=== PATIENT | female | born 1980 | race Caucasian/White ===

== ENCOUNTER 2020-01-01 16:18 | Outpatient (CLI) | payer OTHER, SELFPAY ==
--- NOTE | ~2020-01-01 | XR_ITS ---
XR foot LT min 3V DATE: 01/01/2020 16:43 INDICATION: Left foot dorsal and lateral injury, pain, swelling after a fall down stairs. TECHNIQUE: 4 views COMPARISON: None FINDINGS: No fracture or dislocation, periosteal reaction or bone destruction. Joint spaces are prese rved. IMPRESSION: Negative Reviewed, dictated and finalized at location A. IMPRESSION: Negative
== END 2020-01-01 16:19 | disposition home or self-care (01) ==
PROVIDERS: PCP Physician Assistant; Visit Provider Physician Assistant
DX: S99.922A Unspecified injury of left foot, initial encounter (principal); X58.XXXA Exposure to other specified factors, initial encounter
CPT/HCPCS: 73630

== ENCOUNTER 2020-06-21 16:44 | Outpatient (CLI) | payer OTHER, SELFPAY ==
--- NOTE | ~2020-06-21 | MM_ITS ---
EXAMINATION: MM screening [facility]chis BI w tequila HISTORY: Screening mammogram TECHNIQUE: Craniocaudal and mediolateral oblique 3-D tomosynthesis images were obtained and synthetic 2-D images were generated. CAD analysis was submitted and interpreted. COMPARISON: None, baseline BREAST PARENCHYMAL COMPOSITION: The breasts are heterogeneously dense, which may obscure small masses . FINDINGS: RIGHT BREAST: There appear to be low-density obscured masses in the upper outer quadrant of the breas t. No suspicious calcification or architectural distortion are identified. LEFT BREAST: An asymmetry is present in the middle third of the breast 4 cm from the nipple on the me diolateral oblique view. There is no suspicious calcification or architectural distortion. IMPRESSION: 1. Bilateral breast findings as described above. 2. Additional mammographic views and possible breast ultrasound are recommended to evaluate for malig nelly and establish a baseline given that this is the first mammographic examination. BI-RADS Category 0: Incomplete: Needs additional imaging evaluation. Reviewed, dictated and finalized at location A. SEOLOGIST IMPRESSION: 1. Bilateral breast findings as described above. 2. Additional mammographic views and possible breast ultrasound are recommended to evaluate for malignancy and establish a baseline given that this is the fir st mammographic examination. BI-RADS Category 0: Incomplete: Needs additional imaging evaluation.
== END 2020-06-21 16:45 | disposition home or self-care (01) ==
PROVIDERS: PCP Physician Assistant; Visit Provider Obstetrics & Gynecology
DX: Z12.31 Encounter for screening mammogram for malignant neoplasm of breast (principal); R92.8 Other abnormal and inconclusive findings on diagnostic imaging of breast
CPT/HCPCS: 77063; 77067

== ENCOUNTER 2020-07-28 13:06 | Outpatient (CLI) | payer OTHER, SELFPAY ==
--- NOTE | ~2020-07-28 | MMUS_ITS ---
EXAMINATION: MM diagnostic mammo BI, US breast BI complete HISTORY: Low-density circumscribed masses in upper outer quadrant of right breast and asymmetry in th e middle third of the left breast 4 cm from the nipple on MLO view of 06/21/2020 bilateral digital sc reening mammogram examination TECHNIQUE: Additional 3-D tomosynthesis images of both breasts were performed and synthetic 2-D image s were generated. CAD analysis was submitted and interpreted. High resolution bilateral complete jakob st ultrasound was performed. COMPARISON: 06/21/2020 bilateral digital screening mammogram FINDINGS: MAMMOGRAPHIC FINDINGS: No suspicious reproducible mass or any architectural distortion is evident. There is minimal benign c alcification. ULTRASOUND: Right breast: 8:00: 12 x 9.3 x 9.9 mm simple cyst with through transmission and posterior enhancement Adjacent clustered cysts are noted at 8:00 6 cm from the nipple. Another cluster of small cysts is noted at 8:00 3 cm from the nipple, measuring approximately 6.2 x 9 .8 mm overall maximal dimension. There is a 2.9 x 1.3 x 2.5 cm simple cyst in the subareolar area of the right breast. No right or left breast suspicious mass or suspicious shadowing is identified. IMPRESSION: 1. Benign right breast cysts 2. Routine annual mammographic screening is recommended. BI-RADS Category 2: Benign finding(s). Reviewed, dictated and finalized at location A. 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 Benign right breast cysts 2. Routine annual mammographic screening is recommended. BI-RADS Category 2: Benign finding(s).
--- NOTE | ~2020-07-28 | US_ITS ---
EXAMINATION: US pelvic complete w TV EXAM DATE: 07/28/2020 11:08 INDICATION: R10.2 - Pelvic and perineal pain. TECHNIQUE: Pelvic transabdominal and transvaginal sonogram was performed. There are multiple graysca le and Doppler images available for interpretation. Comparison is made to prior examination from 06/07. FINDINGS: Uterus measures 10.7 x 5.8 x 6.7 cm, and is morphologically normal. Endometrial stripe me asures 23 mm, thickened with homogeneous echogenic. There is small free pelvic fluid. Right adnexa: The ovary measures 2.3 x 4.2 x 2.3 cm and is morphologically normal. Ovarian vascular f low confirmed. Left adnexa: The ovary measures 2.8 x 1.5 x 1.9 cm and has dominant follicles. Ovarian vascular flow confirmed. There are large left adnexal veins, possible pelvic congestion syndrome. IMPRESSION: 1. Thickened endometrium at 2.3 cm could be phasic; consider 6 week follow-up pelvic sonogram. 2. Dilated left adnexal veins, possible pelvic congestion syndrome. Reviewed, dictated and finalized at location A. 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
== END 2020-07-28 13:07 | disposition home or self-care (01) ==
PROVIDERS: PCP Physician Assistant; Visit Provider Obstetrics & Gynecology
DX: R92.8 Other abnormal and inconclusive findings on diagnostic imaging of breast (principal); R10.2 Pelvic and perineal pain
CPT/HCPCS: 76641; 76830; 76856; 77066

== ENCOUNTER → 2020-08-16 03:48 | Outpatient (CLI) | payer OTHER, SELFPAY ==
[2020-08-17 18:18] LABS: SARS-CoV-2 RNA PCR Negative
== END ==
PROVIDERS: PCP Physician Assistant; Visit Provider Internal Medicine Gastroenterology
DX: Z01.812 Encounter for preprocedural laboratory examination (principal); Z20.822 Contact with and (suspected) exposure to COVID-19
CPT/HCPCS: C9803; U0003; U0005

== ENCOUNTER 2020-08-19 01:02 | Day surgery (SDC) | payer OTHER, SELFPAY ==
[2020-08-08 10:41] VITALS: BMI 21.2
[2020-08-19 06:25] VITALS: BP 119/84; PULSE 119; RESP 17; TEMP 36.4; O2SAT 100; BMI 20.1
[2020-08-19] MEDS: LACTATED RINGERS 1,000 ML 150 ML IV CONT (06:38)
--- NOTE | 2020-08-19 07:23 | WPDANESEPPF ---
Anes - Initial Pre Proc Eval Procedure: Operation Date: 08/19/20 07:30 Proposed Procedures p Screening Colonoscopy - Jamie Brothers MD Date/Time: 08/19/20 07:23 Surgeon: Jamie Brothers MD Pre Op Diagnosis: Neoplasm Screening Patient Data Age: 40 Gender: F Height: 5 ft 5 in Weight: 54.9 kg Last Vital Signs Temp 97.6 F 08/19/20 06:25 Pulse 119 H 08/19/20 06:25 Resp 17 08/19/20 06:25 BP 119/84 08/19/20 06:25 Pulse Ox 100 08/19/20 06:25 Allergies Allergy/AdvReac Type Severity Reaction Status Date / Time No Known Allergies Allergy Verified 08/19/20 06:24 Home Medications Medication Instructions Recorded Confirmed Type spironolactone 50 mg tablet 50 mg PO DAILY 07/21/20 08/19/20 History Patient hx anesthesia problems: none Family hx anesthesia problems: none PMFSH Past Medical History Medical History (Updated 08/19/20 @ 07:23 by Pedro Cote MD) Healthy adult x4 Family History Family History Mother Endometrial ca Social History Social History Smoking status: Never smoker Second hand tobacco smoke exposure: No Alcohol intake: current Drinks per week: 3 Living arrangements: with family Spiritual care concerns: No Anes - Eval Final PreProcedure Day of Procedure 08/19/20 07:23 Patient weight: normal Heart: regular rate and rhythm Lungs: clear to auscultation Airway: Mallampati scale class 1 Neurological: alert and oriented Last oral intake: >/= 8 hours ASA classification: I Emergent: no Anesthetic plan: proceed Anesthesia type and monitoring: general GIVS and standard monitoring Informed Consent: The patient's anesthetic plan and its attendant risks and benefits were discussed with the patient/family/POA. Questions were solicited and answers provided to the satisfaction of the patient/family/POA.
--- NOTE | 2020-08-19 07:38 | PM.HPGS ---
History of Present Illness History of Present Illness Consent: Risks, benefits, and alternatives have been discussed and questions answered. Patient agrees to proceed with procedure. Chief complaint: Neoplasm Screening Narrative: Talita Johns is a 40 year old female here for first screening colonoscopy, mother just diagnosed with Davis syndrome after had uterine cancer. Patient is asymptomatic Review of Systems Constitutional: Constitutional: Denies headache(s) and Denies weakness Eyes: Eyes: Denies blurry vision ENT: Reports Normal hearing present, Denies headache(s) and Denies neck pain Cardiovascular: Cardiovascular: Denies chest pain and Denies dyspnea Respiratory: Respiratory: Denies dyspnea Gastrointestinal: Gastrointestinal: Reports no additional gastrointestinal complaints Genitourinary: Genitourinary: Denies dysuria Musculoskeletal: Musculoskeletal: Denies neck pain Integumentary/Breasts: Skin/Breast: Denies dry skin Neurologic: Reports Normal hearing present, Denies headache(s) and Denies weakness Psychiatric: Psychiatric: Denies anxiety Endocrine: Endocrine: Denies change in body appearance Hematologic/Lymphatic: Hematologic/Lymphatic: Denies easy bleeding Allergic/Immunologic: Allergic/Immunologic: Denies urticaria PMFSH Past Medical History Medical History (Updated 08/19/20 @ 07:39 by Jamie Brothers MD) Colon cancer screening Family history of Davis syndrome Healthy adult x4 Family History Family History Mother Endometrial ca Social History Social History Smoking status: Never smoker Second hand tobacco smoke exposure: No Alcohol intake: current Drinks per week: 3 Living arrangements: with family Spiritual care concerns: No Meds Home Medications and Allergies Home Medications Medication Instructions Recorded Confirmed Type spironolactone 50 mg tablet 50 mg PO DAILY 07/21/20 08/19/20 History Allergies Allergy/AdvReac Type Severity Reaction Status Date / Time No Known Allergies Allergy Verified 08/19/20 06:24 Vital Signs Vital Signs - 24 hr 08/19/20 06:25 Temperature 97.6 F Pulse Rate 119 H Respiratory Rate 17 Blood Pressure 119/84 Pulse Oximetry 100 Exam Const: General: comfortable and no acute distress HENMT: General nose exam: Normal nares present Eyes: General: appearance normal, both eyes and all related structures Neck: Neck: no JVD Resp: Auscultation: clear to auscultation bilaterally Cardio: Rate: regular rate Rhythm: regular rhythm GI: Inspection: non-distended GI Palp: Yes Soft to palpation Skin: General skin exam: normal color Neuro: General: gait normal Speech: normal speech Extrem: General: normal to inspection Psych: Mental Status: mental status grossly normal Assessment and Plan Assessment and plan (1) Colon cancer screening: Code(s): Z12.11 - Encounter for screening for malignant neoplasm of colon Status: Acute Assessment and Plan: proceed with colonoscopy (2) Family history of Davis syndrome: Code(s): Z80.0 - Family history of malignant neoplasm of digestive organs Status: Acute
[2020-08-19 08:03] VITALS: BP 92/62; PULSE 82; RESP 21; O2SAT 100
[2020-08-19 08:13] VITALS: BP 101/70; PULSE 75; RESP 18; O2SAT 100
[2020-08-19 08:23] VITALS: BP 108/68; PULSE 74; RESP 20; O2SAT 99
== END 2020-08-19 08:54 | disposition home or self-care (01) ==
PROVIDERS: PCP Physician Assistant; Referring Provider Obstetrics & Gynecology; Visit Provider Internal Medicine Gastroenterology
PROC: 0DJD8ZZ Inspection of Lower Intestinal Tract, Via Natural or Artificial Opening Endoscopic (ICD-10-PCS; CPT 45378; principal; 2020-08-19 07:30)
DX: Z12.11 Encounter for screening for malignant neoplasm of colon (principal); D12.4 Benign neoplasm of descending colon; D12.5 Benign neoplasm of sigmoid colon; Z80.0 Family history of malignant neoplasm of digestive organs; K63.5 Polyp of colon; K64.8 Other hemorrhoids
CPT/HCPCS: 45385; 88305; C9803; J2001; J2704; J7120; U0003; U0005

== ENCOUNTER → 2020-12-10 00:49 | Outpatient (CLI) | payer OTHER, SELFPAY ==
[2020-12-10 19:37] LABS: SARS-CoV-2 RNA PCR Negative
== END ==
PROVIDERS: PCP Physician Assistant; Visit Provider Obstetrics & Gynecology
DX: Z01.812 Encounter for preprocedural laboratory examination (principal); Z20.822 Contact with and (suspected) exposure to COVID-19
CPT/HCPCS: C9803; U0003; U0005

== ENCOUNTER 2020-12-14 00:51 | Day surgery (SDC) | payer OTHER, SELFPAY ==
[2020-12-06 13:34] VITALS: BMI 21.1
--- NOTE | 2020-12-13 22:32 | PM.IMHP ---
H&P: HPI History of Present Illness Date/Time: 12/13/20 22:32 She has a history of prolonged periods for close to a year. She has periods that can last up to ten days. Has intermittent months where she has spotting mid cycle. Pelvic ultrasound in July showed thickened endometrial stripe which can be normal is a person her age but due to her mother having a history of uterine cancer and due to her symptoms, an endometrial biopsy was recommended. She was informed that the endometrial biopsy did show a polyp. She was informed that the polyp is benign. Discussed the procedure that is recommended to remove the polyp which is a dilation and curettage and hysteroscopy. Discussed with her that endometrial polyps can reoccur. She does have a strong family history of uterine cancer. And has some family history that may be consistent with Davis syndrome which she has been offered the test to check for Davis syndrome. Discussed with her that intrauterine device with progesterone may be protective on the uterus as for his risk of endometrial cancer abnormal endometrial cells. Discussed the risks benefits of Mirena IUD. She does not desire any future . She was informed that the IUD can be put in at the same time as the D and C hysteroscopy if she desires this. Her questions were answered. Chief Complaint: Abnormal bleeding and endometrial polyp. Review of Systems Review of Systems: All systems reviewed & are unremarkable except as noted in HPI and below Cardiovascular: Cardiovascular: Reports no additional cardiovascular complaints, Denies chest pain and Denies dyspnea Respiratory: Respiratory: Reports no additional respiratory complaints and Denies dyspnea Gastrointestinal: Gastrointestinal: Reports abdominal pain, Denies change in bowel habits, Denies diarrhea, Denies nausea and Denies vomiting Genitourinary: Genitourinary: Reports pelvic pain Musculoskeletal: Musculoskeletal: Reports back pain Integumentary/Breasts: Skin/Breast: Reports system reviewed and no additional complaints, except as docu Neurologic: Reports system reviewed and no additional complaints, except as documented PMFSH Past Medical History Medical History Colon cancer screening Family history of Davis syndrome Healthy adult x4 Surgical History Surgical History H/O ovarian cystectomy [place] teeth removed Family History Family History Mother Endometrial ca Social History Social History Smoking status: Never smoker Second hand tobacco smoke exposure: No Alcohol intake: current Drinks per week: 3 Substance use: never Substance use type: does not use Living arrangements: with family Spiritual care concerns: No Meds Home Medications and Allergies Home Medications Medication Instructions Recorded Confirmed Type spironolactone 50 mg tablet 50 mg PO DAILY 07/21/20 12/14/20 History Allergies Allergy/AdvReac Type Severity Reaction Status Date / Time No Known Allergies Allergy Verified 12/14/20 06:26 Exam Const: Orientation/consciousness: oriented to person and oriented to place HENMT: Head: normal to inspection Eyes: General: appearance normal, both eyes and all related structures Resp: Effort & Inspection: normal respiratory effort Auscultation: clear to auscultation bilaterally Cardio: Rate: regular rate Rhythm: regular rhythm GI: Inspection: normal to inspection GI Palp: No Rebound tenderness present : External Female Exam: normal external appearance Speculum Exam - Vagina: normal appearance of the vagina Speculum Exam - Cervix: normal appearance of the cervix Bimanual exam- vagina & uterus: normal bimanual exam Bimanual Exam- Adnexa, other: normal adnexae Neuro:
[2020-12-14 06:21] VITALS: BP 128/61; PULSE 93; RESP 16; TEMP 36.3; O2SAT 100
[2020-12-14] MEDS: ACETAMINOPHEN 500 MG TABLET 1000 MG PO (06:35)
[2020-12-14] MEDS: LACTATED RINGERS 1,000 ML 30 ML IV CONT ×2 (06:40→07:57)
--- NOTE | 2020-12-14 06:57 | WPDHPUPDATE1 ---
History and Physical Update Update Date/Time: 12/14/20 06:57 History and Physical has been reviewed, including an updated exam of the patient. There are NO changes in the patient's condition. Risks, benefits, and alternatives have been discussed and questions answered. Patient agrees to proceed with procedure.
--- NOTE | 2020-12-14 07:01 | P.PNAN_ITS ---
Anes - Initial Pre Proc Eval Procedure: Operation Date: 12/14/20 07:30 Proposed Procedures p Hysteroscopy, Dilation and Curettage With Myosure, Mirena Insertion - Mario Jim MD Date/Time: 12/14/20 07:01 Surgeon: Mario Jim MD Pre Op Diagnosis: Abnormal Bleeding, Endometrial Polyp Patient Data Age: 40 Gender: F Height: 5 ft 4.5 in Weight: 58.4 kg Last Vital Signs Temp 36.3 C L 12/14/20 06:21 Pulse 93 12/14/20 06:21 Resp 16 12/14/20 06:21 BP 128/61 12/14/20 06:21 Pulse Ox 100 12/14/20 06:21 Allergies Allergy/AdvReac Type Severity Reaction Status Date / Time No Known Allergies Allergy Verified 12/14/20 06:26 Home Medications Medication Instructions Recorded Confirmed Type spironolactone 50 mg tablet 50 mg PO DAILY 07/21/20 12/14/20 History Patient hx anesthesia problems: none and other (motion sickness) Family hx anesthesia problems: none PMFSH Past Medical History Medical History Colon cancer screening Family history of Davis syndrome Healthy adult x4 Surgical History Surgical History H/O ovarian cystectomy [place] teeth removed Family History Family History Mother Endometrial ca Social History Social History Smoking status: Never smoker Second hand tobacco smoke exposure: No Alcohol intake: current Drinks per week: 3 Substance use: never Substance use type: does not use Living arrangements: with family Spiritual care concerns: No Anes - Eval Final PreProcedure Day of Procedure 12/14/20 07:01 Patient weight: normal Heart: regular rate and rhythm Lungs: clear to auscultation Airway: Mallampati scale class II Neurological: alert and oriented Last oral intake: >/= 8 hours ASA classification: I Emergent: no Anesthetic plan: proceed Anesthesia type and monitoring: general GIVS and standard monitoring Informed Consent: The patient's anesthetic plan and its attendant risks and benefits were discussed with the patient/family/POA. Questions were solicited and answers provided to the satisfaction of the patient/family/POA.
[2020-12-14] MEDS: SCOPOLAMINE 1.5 MG PATCH TRANSDERM (07:07)
[2020-12-14] MEDS: ceFAZolin 2 GM/D5W 50 ML 2 GM/50 ML BAG IVPB (07:24)
[2020-12-14] MEDS: KETOROLAC 30 MG/ML VIAL (*BKC) IV PUSH (07:50)
--- NOTE | 2020-12-14 07:53 | W.PM.PROC2 ---
Procedure Note - Detailed Date of Procedure 12/26/20 Pre-op Diagnosis Abnormal Bleeding, Endometrial Polyp Post-op Diagnosis same Procedure Performed 1. Diagnostic hysteroscopy and dilation and currettage. 2. Mirena insertion Surgeon Mario Jim MD Anesthesia MAC and local Indications 1. Abnormal uterine bleeding and endometrial polyp on office endometrial biopsy. Findings Uterus sound to 9cm, cavity normal appearing with mildly proliferative tissue, no polyp visualized. Normal saline distending media 300ccI/260cc out. Description of Procedure After informed consent was obtained patient was taken to operating room in stable condition. After IV anesthesia she was placed low lithotomy position and prepped and draped in sterile fashion. Attention was turned to vagina. Speculum inserted. Single tooth tenaculum placed on cervix. 10cc of 1% lidocaine was injected at cervicovaginal interface at 2,5,8,10 o clock. Uterus was sound to 9cm. Cervix dilated to 8 mcclendon dilator. The hysteroscope was inserted. Cavity appeared normal with mild proliferative tissue. A currettage was performed. The Mirena device was inserted in normal fashion. String trimmed to 3 cm. Tenaculum removed. Hemostasis noted at tenaculum site. Patient tolerated procedure well. Implants Mirena device Lot [id number] EXp Dec 2022. Estimated Blood Loss 5 Drains No Packing No Pathology yes (1. Endometrial currettings) Complications No immediate complications Condition stable Disposition same day
[2020-12-14 07:57] VITALS: BP 119/65; PULSE 75; RESP 12; O2SAT 100
[2020-12-14 08:15] VITALS: BP 114/86; PULSE 64; RESP 20
[2020-12-14 08:45] VITALS: BP 103/69; PULSE 58; RESP 20
[2020-12-14 09:10] VITALS: BP 100/68; PULSE 60; RESP 20
== END 2020-12-14 09:15 | disposition home or self-care (01) ==
PROVIDERS: PCP Physician Assistant; Visit Provider Obstetrics & Gynecology
PROC: 0U5B8ZZ Destruction of Endometrium, Via Natural or Artificial Opening Endoscopic (ICD-10-PCS; CPT 58563; principal; 2020-12-14 07:30)
DX: N93.9 Abnormal uterine and vaginal bleeding, unspecified (principal); N84.0 Polyp of corpus uteri; Z30.430 Encounter for insertion of intrauterine contraceptive device; Z15.09 Genetic susceptibility to other malignant neoplasm
CPT/HCPCS: 58558; 58300; 88305; A9270; C9803; J0690; J1885; J2250; J2704; J3010; J7030; J7120; U0003; U0005

== ENCOUNTER 2021-07-06 12:13 | Outpatient (CLI) | payer OTHER, SELFPAY ==
--- NOTE | ~2021-07-06 | MMUS_ITS ---
EXAMINATION: MM diagnostic conchis BI w tequila, US breast RT limited HISTORY: Palpable right breast abnormality TECHNIQUE: Additional 3-D tomosynthesis images of the breasts were performed and synthetic 2-D images were generated. CAD analysis was submitted and interpreted. High resolution Limited right breast ult rasound was performed. COMPARISON: Comparison to multiple prior studies sequentially, with oldest reviewed study dated 06/07. BREAST PARENCHYMAL COMPOSITION: The breasts are heterogenously dense, which may obscure small masses. FINDINGS: MAMMOGRAPHIC FINDINGS: There is a mass in the subareolar location of the right breast which appears slightly larger than on prior examination. The left breast is stable without evidence for malignancy. ULTRASOUND: Limited right breast ultrasound: At 8:00, 3 cm from the nipple, there is a 3 cm cyst corresponding to the palpable abnormality. No lyn picious masses to suggest malignancy. IMPRESSION: 1. No significant change to benign 3 cm right breast cyst at 8:00, 3 cm from the nipple, correspondin g to the palpable abnormality. No evidence for malignancy in either breast. 2. Routine yearly screening mammogram and regular clinical breast examination are recommended. BI-RADS Category 2: Benign finding(s). Reviewed, dictated and finalized at location A. 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 No significant change to benign 3 cm right breast cyst at 8:00, 3 cm from th e nipple, corresponding to the palpable abnormality. No evidence for malignancy in either breast. 2. Routine yearly screening mammogram and regular clinical breast examination a re recommended. BI-RADS Category 2: Benign finding(s).
== END 2021-07-06 12:14 | disposition home or self-care (01) ==
LOC: ANHIMG 12:15
PROVIDERS: PCP Physician Assistant; Visit Provider Obstetrics & Gynecology
DX: N63.0 Unspecified lump in unspecified breast (principal); N60.01 Solitary cyst of right breast
CPT/HCPCS: 76642; 77062; 77066; G0279

== ENCOUNTER 2022-10-16 09:08 | Outpatient (CLI) | payer OTHER, SELFPAY ==
--- NOTE | ~2022-10-16 | MM_ITS ---
EXAMINATION: MM screening [facility] BI w tequila HISTORY: Screening mammogram TECHNIQUE: Craniocaudal and mediolateral oblique 3-D tomosynthesis images were obtained and synthetic 2-D images were generated. CAD analysis was submitted and interpreted. COMPARISON: 07/06/2021, 07/28/2020, 06/21/2020 BREAST PARENCHYMAL COMPOSITION:The breasts are extremely dense, which lowers the sensitivity of mammo graphy. FINDINGS: No suspicious mass, calcification, or architectural distortion are identified in either jackie ast to suggest malignancy. There has been no suspicious interval change. IMPRESSION: No mammographic evidence of malignancy. Recommend routine screening mammography in one year. BI-RADS Category 1: Negative Reviewed, dictated and finalized at location .
== END 2022-10-16 09:09 | disposition home or self-care (01) ==
PROVIDERS: PCP Physician Assistant; Visit Provider Obstetrics & Gynecology
DX: Z12.31 Encounter for screening mammogram for malignant neoplasm of breast (principal)
CPT/HCPCS: 77063; 77067

== ENCOUNTER 2022-11-02 01:36 | Day surgery (SDC) | payer OTHER, SELFPAY ==
[2022-10-25 08:37] VITALS: BMI 21.1
--- NOTE | 2022-11-01 12:41 | WPDANESEPPF ---
Anes - Initial Pre Proc Eval Procedure: Operation Date: 11/02/22 11:30 Proposed Procedures p Colonoscopy - Jamie Brothers MD Date/Time: 11/01/22 12:41 Surgeon: Jamie Brothers MD Pre Op Diagnosis: hx colon polyps Patient Data Age: 42 Gender: F Height: 1.65 m Weight: 57.5 kg Allergies Allergy/AdvReac Type Severity Reaction Status Date / Time No Known Allergies Allergy Verified 11/02/22 10:23 Home Medications Medication Instructions Recorded Confirmed Type spironolactone 50 mg tablet 50 mg PO DAILY 07/21/20 11/02/22 History levonorgestrel 21 mcg/24 hours (8 1 device intrauterine ONCE 01/03/21 11/02/22 History yrs) 52 mg intrauterine device (Mirena) Patient hx anesthesia problems: none Family hx anesthesia problems: none Results Review: All pre-operative results and documents have been reviewed as part of the pre-operative evaluation. PMFSH Past Medical History Medical History Healthy adult x4 Surgical History Surgical History H/O ovarian cystectomy [place] teeth removed Family History Family History Mother Endometrial ca Other Davis syndrome Social History Social History Smoking status: Never smoker Second hand tobacco smoke exposure: No Alcohol intake: current Drinks per week: 3 Substance use: never Substance use type: does not use Living arrangements: with family Spiritual care concerns: No Anes - Eval Final PreProcedure Day of Procedure 11/01/22 12:41 Patient weight: normal Heart: regular rate and rhythm Lungs: clear to auscultation and normal air movement Airway: Mallampati scale class II Neurological: alert and oriented Last oral intake: >/= 8 hours ASA classification: I Emergent: no Anesthetic plan: proceed Anesthesia type and monitoring: general GIVS and standard monitoring Results Review: All pre-operative results and documents have been reviewed as part of the pre-operative evaluation. Informed Consent: The patient's anesthetic plan and its attendant risks and benefits were discussed with the patient/family/POA. Questions were solicited and answers provided to the satisfaction of the patient/family/POA.
[2022-11-02 10:24] VITALS: BP 126/89; PULSE 111; RESP 16; TEMP 36.6; O2SAT 100
[2022-11-02] MEDS: LACTATED RINGERS 1,000 ML 150 ML IV CONT (10:26)
--- NOTE | 2022-11-02 10:55 | PM.HPGS ---
History of Present Illness History of Present Illness Consent: Risks, benefits, and alternatives have been discussed and questions answered. Patient agrees to proceed with procedure. Chief complaint: hx colon polyps Narrative: Talita Johns is a 42 year old female here for colonoscopy, last one 2020 with polyps, mother has davis syndrome Review of Systems Constitutional: Constitutional: Denies headache(s) and Denies weakness Eyes: Eyes: Denies blurry vision ENT: Reports Normal hearing present, Denies headache(s) and Denies neck pain Cardiovascular: Cardiovascular: Denies chest pain and Denies dyspnea Respiratory: Respiratory: Denies dyspnea Gastrointestinal: Gastrointestinal: Reports no additional gastrointestinal complaints Genitourinary: Genitourinary: Denies dysuria Musculoskeletal: Musculoskeletal: Denies neck pain Integumentary/Breasts: Skin/Breast: Denies dry skin Neurologic: Reports Normal hearing present, Denies headache(s) and Denies weakness Psychiatric: Psychiatric: Denies anxiety Endocrine: Endocrine: Denies change in body appearance Hematologic/Lymphatic: Hematologic/Lymphatic: Denies easy bleeding Allergic/Immunologic: Allergic/Immunologic: Denies urticaria PMFSH Past Medical History Medical History (Updated 11/02/22 @ 10:56 by Jamie Brothers MD) Adenomatous colon polyp Healthy adult x4 Surgical History Surgical History H/O ovarian cystectomy [place] teeth removed Family History Family History Mother Endometrial ca Other Davis syndrome Social History Social History Smoking status: Never smoker Second hand tobacco smoke exposure: No Alcohol intake: current Drinks per week: 3 Substance use: never Substance use type: does not use Living arrangements: with family Spiritual care concerns: No Meds Home Medications and Allergies Home Medications Medication Instructions Recorded Confirmed Type spironolactone 50 mg tablet 50 mg PO DAILY 07/21/20 11/02/22 History levonorgestrel 21 mcg/24 hours (8 1 device intrauterine ONCE 01/03/21 11/02/22 History yrs) 52 mg intrauterine device (Mirena) Allergies Allergy/AdvReac Type Severity Reaction Status Date / Time No Known Allergies Allergy Verified 11/02/22 10:23 Vital Signs Vital Signs - 24 hr 11/02/22 10:24 Temperature 97.8 F Pulse Rate 111 H Respiratory Rate 16 Blood Pressure 126/89 Pulse Oximetry 100 Oxygen Delivery Room Air Exam Const: General: comfortable and no acute distress HENMT: Face/Nose/Sinus: Normal nares present Eyes: General: appearance normal, both eyes and all related structures Neck: Neck: no JVD Resp: Auscultation: clear to auscultation bilaterally Cardio: Rate: regular rate Rhythm: regular rhythm GI: Inspection: non-distended GI Palp: Yes Soft to palpation Skin: General skin exam: normal color Neuro: General: gait normal Speech: normal speech Extrem: General: normal to inspection Psych: Mental Status: mental status grossly normal Assessment and Plan Assessment and plan (1) Family history of Davis syndrome: Code(s): Z80.0 - Family history of malignant neoplasm of digestive organs Status: Acute (2) Adenomatous colon polyp: Code(s): D12.6 - Benign neoplasm of colon, unspecified Status: Acute Assessment and Plan: colonoscopy
[2022-11-02 11:18] VITALS: BP 109/66; PULSE 106; RESP 19; O2SAT 100
[2022-11-02 11:28] VITALS: BP 102/68; PULSE 66; RESP 13; O2SAT 100
[2022-11-02 11:38] VITALS: BP 119/65; PULSE 81; RESP 19; O2SAT 100
== END 2022-11-02 11:41 | disposition home or self-care (01) ==
PROVIDERS: PCP Physician Assistant; Visit Provider Internal Medicine Gastroenterology
PROC: 0DJD8ZZ Inspection of Lower Intestinal Tract, Via Natural or Artificial Opening Endoscopic (ICD-10-PCS; CPT 45378; principal; 2022-11-02 11:30)
DX: Z12.11 Encounter for screening for malignant neoplasm of colon (principal); D12.5 Benign neoplasm of sigmoid colon; K64.8 Other hemorrhoids; Z80.0 Family history of malignant neoplasm of digestive organs
CPT/HCPCS: 45385; 88305; J2704; J7120

== ENCOUNTER 2024-03-05 07:25 | Outpatient (CLI) | payer OTHER, SELFPAY ==
--- NOTE | ~2024-03-05 | MM_ITS ---
EXAMINATION: MM screening conchis BI w tequila HISTORY: Screening TECHNIQUE: Craniocaudal and mediolateral oblique 3-D tomosynthesis images were obtained and synthetic 2-D images were generated. CAD analysis was submitted and interpreted. COMPARISON: Comparison to multiple prior studies sequentially, with oldest reviewed study dated 06/07. BREAST PARENCHYMAL COMPOSITION: Dense: The breasts are extremely dense, which lowers the sensitivity of mammography. FINDINGS: There is no evidence of suspicious mass, calcification, or architectural distortion to sugg est malignancy in either breast. There has been no suspicious interval change. IMPRESSION: 1. No mammographic evidence of malignancy. 2. Recommend routine screening mammography in one year. BI-RADS Category 1: Negative Reviewed, dictated and finalized at location B.
== END 2024-03-05 07:26 | disposition home or self-care (01) ==
LOC: ANHIMG 07:26
PROVIDERS: PCP Physician Assistant; Visit Provider Obstetrics & Gynecology
DX: Z12.31 Encounter for screening mammogram for malignant neoplasm of breast (principal)
CPT/HCPCS: 77063; 77067

== ENCOUNTER 2025-02-19 06:31 | Day surgery (SDC) | payer OTHER, SELFPAY ==
[2025-02-04 09:56] VITALS: BMI 20.8
--- OUTSIDE RECORDS SUMMARY | 2025-02-19 06:34 | XMS_ITS | Clinical Summary ---
Author Organization [facility] Address [address] [place] [address] Phone Care Team Providers Care Ergonomics Consultant Name Role Phone Ramses Jim MD Primary Care Provider [phone] Allergies No known active allergies Medications spironolactone (ALDACTONE) 50 mg tablet 06/01/2021 Active Active Problems No known active problems Social History Tobacco Use Types Packs/Day Years Used Date Smoking Tobacco: Never Smokeless Tobacco: Never Tobacco Cessation:Counseling Given: Yes Alcohol Use Standard Drinks/Week Comments Yes 0 (1 standard drink = 0.6 oz pur e alcohol) Comments No Sex and Gender Information Value Date Recorded Sex Assigned at Not on file Legal Sex Female 11:40 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 Gender Identity Not on file Sexual Orientation Not on file Last Filed Vital Signs Vital Sign Reading Time Taken Comments Blood Pressure 120/72 07/27/2021 9:18 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 Pulse - - Temperature - - Respiratory Rate - - Oxygen Saturation - - Inhaled Oxygen Concentration - - Weight 60.3 kg (133 lb) 07/27/2021 9:18 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 Height 163.8 cm (5' 4.5) 07/27/2021 9:18 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 Body Mass Index 22.48 07/27/2021 9:18 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 Plan of Treatment Health Maintenance Due Date Last Done Comments HPV VACCINES (1 - 3-dose series) 1994 DTAP/TDAP/TD VACCINES (1 - Tdap) 1998 HEPATITIS B VACCINES (1 of 3 - 19+ 3-dose series) 1998 HPV/Cotest (21-29) 2000 CERVICAL CANCER SCREENING 2009 HPV/Cotest (30-65) 2009 PAP SMEAR 2009 BREAST CANCER SCREENING 07/06/2022 07/06/20 21, 07/28/2020, 06/21/2020 Preventative Visit- Commercial 07/08/2024 COLORECTAL SCREENING 2024 Colorectal Cancer Screening 2024 FIT-DNA Q 3 years 2024 FIT/FOBT Q 1 year 2024 Flex Sig/CT Colonography Q 5 years 2024 INFLUENZA VACCINE (#1) 2025 Procedures Procedure Name Priority Date/Time Associated Diagnosis Comments MAMMO 3D GABRIEL DIAGNOSTIC QUINN AT W OR WO CAD Routine 07/06/2021 from Last 3 Months or Most Recently Relevant to Health Maintenance Results * MAMMO DIAG BILAT 3D GABRIEL W OR WO CAD (07/06/2021) Anatomical Region Laterality Modality Breast Bilateral Mammography us Abstract Provider MAMMO ORDERABLES Edited Result - Final from Last 3 Months or Most Recently Relevant to Health Maintenance Insurance [facility] OPEN ACCESS O Care Teams Ergonomics Consultant Relationship Specialty Start Date End Date Ramses Jim MD [address] [place] [address] PCP - General Family Practice 07/27/21
--- OUTSIDE RECORDS SUMMARY | 2025-02-19 06:34 | XMS_ITS | Clinical Summary ---
Author Organization [facility] Address [address] [place] [address] [place] [address] Care Team Providers Care Supervisor Tower Name Role Phone Damon Desai MD Primary Care Provider [phone] Source Comments [facility],non-owned Affiliates and Associated Physician Practices is amultiple site organization consisting of ambulatory clinics and hospital sitesin [place], [place]. This disclosure is being madepursuant to the Care Everywhere program and may not contain all information available regarding this patient. Last updated 18.[facility] Allergies No known active allergies Medications * Be aware that medications may not be up to date on this document. Alwaysverify current medications with the patient. triamcinolone acetonide (KENALOG) 0.1 % cream Apply to affected areas twice daily PRN. 60 days supply. 454 g 1 Active Additional Information Patient not taking.Reported on 11/19/2022 levonorgestrel (MIRENA, 52 MG,) 20 MCG/DAY IUD 1 Active clindamycin (Cleocin) 1 % lotionIndication s:Acne vulgaris Apply to affected area on face, chest and upper back daily. 30 day supply. 60 mL 11 3 Active Additional Information Patient not taking.Reported on 09/09/2023 pimecrolimus (Elidel) 1 % creamIndications :Rash and other nonspecific skin eruption Apply to eyelids/lateral canthus twice a day. 30 days supply. 60 g 1 3 Active mupirocin (Bactroban) 2 % ointmentIndicati ons:Rash and other nonspecific skin eruption Apply to affected area 3 times daily Apply to eyelid if pustules form; use in nostrils, behind earsfor staph eradication 30 g 3 Active Additional Information Patient not taking.Reported on 09/09/2023 spironolactone (Aldactone) 50 MG tabletIndication s:Acne vulgaris Take one tab PO QD. 30 tablet 11 5 Active tretinoin (Retin-A) 0.05 % creamIndications :Acne vulgaris Apply a pea-sized amount to entire face QHS. 30 day supply. 45 g 11 5 Active valACYclovir (Valtrex) 1 GM tabletIndication s:History of herpes labialis Take 2 tablets by mouth every 12 hours for 2 doses. 16 tablet 3 5 Active Active Problems Problem Noted Date Diagnosed Date Ankle pain 02/02/2020 Sprain of left ankle 02/02/2020 Family History Medical History Relation Name Comments None Known Brother Cancer - Skin, Non Melanoma Father None Known Maternal Aunt None Known Maternal Grandfather CVA Maternal Grandmother None Known Maternal Uncle Cancer - Other Mother None Known Other None Known Paternal Aunt Cancer - Skin, Non Melanoma Paternal Grandfather None Known Paternal Grandmother None Known Paternal Uncle None Known Sister Asthma Neg Hx Cancer - Breast Neg Hx Cancer - Skin, Melanoma Neg Hx Eczema Neg Hx Hemophilia Neg Hx Psoriasis Neg Hx Relation Name Status Comments Brother Father Maternal Aunt Maternal Grandfather Maternal Grandmother Maternal Uncle Mother Other Paternal Aunt Paternal Grandfather Paternal Grandmother Paternal Uncle Sister Social History Tobacco Use Types Packs/Day Years Used Date Smoking Tobacco: Never Smokeless Tobacco: Never Tobacco Cessation:Counseling Given: Not Answered Alcohol Use Standard Drinks/Week Comments Yes 3 (1 standard drink = 0.6 oz pur e alcohol) Comments Unknown Sex and Gender Information Value Date Recorded Sex Assigned at Not on file 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 Sex 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 Gender Identity Not on file Sexual Orientation Not on file Plan of Treatment Upcoming Encounters Date Type Department Care Team (Late st Contact Info) Description 09/20/2025 11:20 AM CDT Office Visit [facility] - General Dermatology [address] [place] [address] Teresa Garcia MD [address] [facility] [address] [place] [id number] Health Maintenance Due Date Last Done Comments COLOGUARD (AGES 45-75) - COL ON CA SCREENING 1979 COLON MONITORING 1979 COLONOSCOPY - COLON CA SCREENING 1979 CT COLONOGRAPHY - COLON CA SCREENING 1979 Colorectal Cancer Screening 1979 FIT - COLON CA SCREENING 1979 FLEX SIG - COLON CA SCREENING 1979 LIPID TESTING 1979 HIV SCREENING 1994 HEPATITIS C SCREENING 07/29/1997 DTAP/TDAP/TD VACCINES (1 - Tdap) 1998 HEPATITIS B VACCINE (1 of 3 - 19+ 3-dose series) 1998 PAP SMEAR 2000 HPV VACCINE (1 - 3-dose SCDM series) 2006 MAMMOGRAM 07/06/2023 07/06/2021, 07/28/2020 COVID-19 VACCINE (1 - 2023-2 5 season) 2024 DEPRESSION SCREENING 07/08/2024 INFLUENZA VACCINE (#1) 2025 ZOSTER VACCINE (1 of 2) 2029 HIB VACCINE Aged Out No longer eligi ble based on patient's age to complete this topic MENINGOCOCCAL (Group B) VACCINE SHARED DECISION-MAKING Aged Out No longer eligible based on patient's age to complete this topic MENINGOCOCCAL GROUPS A/C/Y/W VACCINE Aged Out No longer eligible b ased on patient's age to complete this topic PNEUMOCOCCAL VACCINE Aged Out No long er eligible based on patient's age to complete this topic Insurance [employer] Care Teams Supervisor Tower Relationship Specialty Start Date End Date Damon Desai MD [facility] [place] [address] PCP - General 06/22/20
[2025-02-19 06:55] VITALS: BP 106/72; PULSE 94; RESP 16; TEMP 36.4; O2SAT 99; BMI 20.9
[2025-02-19] MEDS: LACTATED RINGERS 1,000 ML 150 ML IV CONT (07:03)
--- NOTE | 2025-02-19 07:40 | P.PNAN_ITS ---
Anes - Initial Pre Proc Eval Procedure: Operation Date: 02/19/25 08:30 Proposed Procedures p Screening Colonoscopy - Jamie Brothers MD Date/Time: 02/19/25 07:40 Surgeon: Jamie Brothers MD Pre Op Diagnosis: Personal history of colon polyps, unspecified Patient Data Age: 44 Gender: F Height: 1.65 m Weight: 57 kg Last Vital Signs Temp 97.5 F L 02/19/25 06:55 Pulse 94 02/19/25 06:55 Resp 16 02/19/25 06:55 BP 106/72 02/19/25 06:55 Pulse Ox 99 02/19/25 06:55 O2 Del Method Room Air 02/19/25 06:55 Allergies Allergy/AdvReac Type Severity Reaction Status Date / Time No Known Allergies Allergy Verified 02/19/25 06:54 Home Medications ?Medication ?Instructions ?Recorded ?Confirmed ?Type spironolactone 50 mg tablet 50 mg PO DAILY 07/21/20 02/19/25 History levonorgestrel (Mirena) 1 device intrauterine ONCE 11/07/22 02/04/25 History Patient hx anesthesia problems: none Family hx anesthesia problems: none Results Review: All pre-operative results and documents have been reviewed as part of the pre- operative evaluation. [facility] Past Medical History Medical History Adenomatous colon polyp Healthy adult x4 Surgical History Surgical History H/O ovarian cystectomy [place] teeth removed Family History Family History Mother Endometrial ca Other Davis syndrome Social History Social History Smoking status: Never smoker Second hand tobacco smoke exposure: No Alcohol intake: current Drinks per week: 3 Substance use: never Substance use type: does not use Lack of Transportation: No Lack of Food: Never True Current Housing: I Have Housing Concerned About Future Housing: No Difficulty Paying Gas/Electric Bills: No Difficulty Paying for Meds: No Currently Unemployed: No Education: Bachelor's Degree Difficulty w/ Childcare or Family Care: No Living arrangements: with family Spiritual care concerns: No Anes - Eval Final PreProcedure Day of Procedure 02/19/25 07:40 Patient weight: normal Lungs: normal air movement Airway: Mallampati scale class 1 Neurological: alert and oriented Last oral intake: >/= 8 hours ASA classification: I Emergent: no Anesthetic plan: proceed Anesthesia type and monitoring: general GIVS and standard monitoring Results Review: All pre-operative results and documents have been reviewed as part of the pre- operative evaluation. Healthy, pt exercises daily, no cp or sob. Informed Consent: The patient's anesthetic plan and its attendant risks and benefits were discussed with the patient/family/POA. Questions were solicited and answers provided to the satisfaction of the patient/family/POA.
--- NOTE | 2025-02-19 08:18 | PM.HPGS ---
History of Present Illness History of Present Illness Consent: Risks, benefits, and alternatives have been discussed and questions answered. Patient agrees to proceed with procedure. Chief complaint: Personal history of colon polyps, unspecified Narrative: Talita Johns is a 44 year old female here for colonoscopy, last one 2022 with polyps, mother has becerra syndrome Review of Systems Review of Systems: All systems reviewed & are unremarkable except as noted in HPI and below PMFSH Past Medical History Medical History Adenomatous colon polyp Healthy adult x4 Surgical History Surgical History H/O ovarian cystectomy [place] teeth removed Family History Family History Mother Endometrial ca Other Becerra syndrome Social History Social History Smoking status: Never smoker Second hand tobacco smoke exposure: No Alcohol intake: current Drinks per week: 3 Substance use: never Substance use type: does not use Lack of Transportation: No Lack of Food: Never True Current Housing: I Have Housing Concerned About Future Housing: No Difficulty Paying Gas/Electric Bills: No Difficulty Paying for Meds: No Currently Unemployed: No Education: Bachelor's Degree Difficulty w/ Childcare or Family Care: No Living arrangements: with family Spiritual care concerns: No Meds Home Medications and Allergies Home Medications ?Medication ?Instructions ?Recorded ?Confirmed ?Type spironolactone 50 mg tablet 50 mg PO DAILY 07/21/20 02/19/25 History levonorgestrel (Mirena) 1 device intrauterine ONCE 11/07/22 02/04/25 History Allergies Allergy/AdvReac Type Severity Reaction Status Date / Time No Known Allergies Allergy Verified 02/19/25 06:54 Vital Signs Vital Signs - 24 hr 02/19/25 06:55 Temperature 97.5 F L Pulse Rate 94 Respiratory Rate 16 Blood Pressure 106/72 Pulse Oximetry 99 Oxygen Delivery Room Air Exam Const: General: comfortable and no acute distress HENMT: Face/Nose/Sinus: Normal nares present Eyes: General: appearance normal, both eyes and all related structures Neck: Neck: no JVD Resp: Auscultation: clear to auscultation bilaterally Cardio: Rate: regular rate Rhythm: regular rhythm GI: Inspection: non-distended GI Palp: Yes Soft to palpation Skin: General skin exam: normal color Neuro: General: gait normal Speech: normal speech Extrem: General: normal to inspection Psych: Mental Status: mental status grossly normal Assessment and Plan Assessment and plan (1) Family history of Becerra syndrome: Code(s): Z80.0 - Family history of malignant neoplasm of digestive organs Status: Acute Assessment and Plan: colonoscopy (2) Adenomatous colon polyp: Code(s): D12.6 - Benign neoplasm of colon, unspecified Status: Acute
[2025-02-19 08:29] VITALS: BP 90/61; PULSE 80; RESP 19; O2SAT 96
[2025-02-19 08:39] VITALS: BP 101/84; PULSE 83; RESP 19; O2SAT 100
[2025-02-19 08:49] VITALS: BP 99/69; PULSE 67; RESP 21; O2SAT 100
== END 2025-02-19 08:54 | disposition home or self-care (01) ==
PROVIDERS: PCP Physician Assistant; Referring Provider Internal Medicine Gastroenterology; Visit Provider Internal Medicine Gastroenterology
PROC: 0DJD8ZZ Inspection of Lower Intestinal Tract, Via Natural or Artificial Opening Endoscopic (ICD-10-PCS; CPT 45378; principal; 2025-02-19 08:30)
DX: Z12.11 Encounter for screening for malignant neoplasm of colon (principal); K64.8 Other hemorrhoids; Z98.890 Other specified postprocedural states; Z15.09 Genetic susceptibility to other malignant neoplasm; Z86.0100 Personal history of colon polyps, unspecified; Z85.42 Personal history of malignant neoplasm of other parts of uterus; Z84.81 Family history of carrier of genetic disease
CPT/HCPCS: 45378; J2704; J7120

== ENCOUNTER 2025-03-29 15:10 | Outpatient (CLI) | payer OTHER, SELFPAY ==
--- NOTE | ~2025-03-29 | MM_ITS ---
EXAMINATION: MM screening conchis BI w tequila HISTORY: Screening TECHNIQUE: Craniocaudal and mediolateral oblique 3-D tomosynthesis images were obtained and synthetic 2-D images were generated. CAD analysis was submitted and interpreted. COMPARISON: 10/16/2022 BREAST PARENCHYMAL COMPOSITION: The breasts are heterogeneously dense, which may obscure small masses. FINDINGS: There is no evidence of suspicious mass, calcification, or architectural distortion to suggest malignancy. There has been no suspicious interval change. IMPRESSION: 1. No mammographic evidence of malignancy. Recommend routine screening mammography in one year. BI-RADS Category 2: Benign finding(s) Reviewed, dictated and finalized at location Q. IMPRESSION: 1. No mammographic evidence of malignancy. Recommend routine screening mammogra phy in one year. BI-RADS Category 2: Benign finding(s)
--- OUTSIDE RECORDS SUMMARY | 2025-03-29 15:22 | XMS_ITS | Clinical Summary ---
Author Organization [facility] Address [address] [place] [address] Phone Care Team Providers Care Street Flusher Driver Name Role Phone Ramses Jim MD Primary Care Provider [phone] Allergies No known active allergies Medications spironolactone [...] on file Legal Sex Female 11:40 AM LIFT BUILDER WHOLE Gender Identity Not on file Sexual Orientation Not on file Last Filed Vital Signs Vital Sign Reading Time Taken Comments Blood Pressure 120/72 07/27/2021 9:18 AM LIFT BUILDER WHOLE Pulse - - Temperature - - Respiratory Rate - - Oxygen Saturation - - Inhaled Oxygen Concentration - - Weight 60.3 kg (133 lb) 07/27/2021 9:18 AM LIFT BUILDER WHOLE Height 163.8 cm (5' 4.5) 07/27/2021 9:18 AM LIFT BUILDER WHOLE Body Mass Index 22.48 07/27/2021 9:18 AM LIFT BUILDER WHOLE Plan of Treatment Health Maintenance Due Date Last Done Comments DTAP/TDAP/TD VACCINES (1 - Tdap) 1998 HEPATITIS B VACCINES (1 of 3 - 19+ 3-dose series) 1998 HPV/Cotest (21-29) 2000 HPV VACCINES (1 - 3-dose SCDM series) 2006 CERVICAL CANCER SCREENING 2009 HPV/Cotest (30-65) 2009 [...] Most Recently Relevant to Health Maintenance Insurance [facility] OPEN ACCESS O Care Teams Street Flusher Driver Relationship Specialty Start Date End Date Ramses Jim MD [address] [place] [address] PCP - General Family Practice 07/27/21
--- OUTSIDE RECORDS SUMMARY | 2025-03-29 15:22 | XMS_ITS | Clinical Summary ---
Author Organization [facility] [employer] Address [address] [place] [address] [place] [address] Care Team Providers Care Industrial Safety And Health Specialist Name Role Phone Damon Desai MD Primary Care Provider [phone] Source Comments [facility] [employer],non-owned Affiliates and Associated Physician Practices is amultiple site organization consisting of ambulatory clinics and hospital sitesin [place], [place], [place] and [place]. This disclosure is being madepursuant to the Care Everywhere program and may not contain all information available regarding this patient. 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 Gender Identity Not on file Sexual Orientation Not on file Plan of Treatment Upcoming Encounters Date Type Department Care Team (Late st Contact Info) Description 09/20/2025 11:20 AM CDT Office Visit [facility] - General Dermatology [address] [place] [address] Teresa Garcia MD [address] [facility] [address] [place] [id number] Health Maintenance Due Date Last Done Comments [...] SCDM series) 2006 MAMMOGRAM 07/06/2023 07/06/2021, 07/28/2020 DEPRESSION SCREENING 07/08/2024 COVID-19 VACCINE (1 - 2023-2 5 season) 2025 INFLUENZA VACCINE (#1) 2025 ZOSTER VACCINE (1 [...] complete this topic Insurance [employer] Care Teams Industrial Safety And Health Specialist Relationship Specialty Start Date End Date Damon Desai MD [facility] [place] [address] PCP - General 06/22/20
== END 2025-03-29 15:11 | disposition home or self-care (01) ==
PROVIDERS: PCP Physician Assistant; Visit Provider Obstetrics & Gynecology
DX: Z12.31 Encounter for screening mammogram for malignant neoplasm of breast (principal)
CPT/HCPCS: 77063; 77067